=== PATIENT | female | born 1965 ===

== ENCOUNTER 2016-10-30 15:46 | Emergency (ER) | payer OTHER ==
[2016-10-30 15:54] VITALS: BP 145/80; PULSE 73; RESP 16; TEMP 99.4; O2SAT 99
--- NOTE | 2016-10-30 16:30 | ED PDOC ---
HPI: Headache Time Seen by Provider: 10/30/16 16:28 Chief Complaint (Nursing): Headache History Per: Patient History/Exam Limitations: no limitations Onset/Duration Of Symptoms: Hrs Current Symptoms Are (Timing): Still Present Severity: Moderate Quality: Pressure, Squeezing Associated Symptoms: Nausea. denies: Photophobia, Blurred Vision, Vomiting, Extremity Weakness Additional Complaint(s): CC: headache HPI: 51 y/o woman w/ pmh of HTN (on chlorthalidone) presents to the ED with headache. The patient reports headache started 1 day ago, frontal-occipital region, x3 episodes, squeezing/pressure like in nature, radiates to the neck bilaterally, lasts 30 minutes-1 hour. The patient reports associated nausea, right eye pain and tearing but denies chest pain, paresthesia, vomiting, fever, or travel. The patient does not recall a precipitating event. The patient took no medication for the headache. 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 ROS: 12 points assessed and negative unless otherwise reported in HPI PMH: HTN PMD: [facility] meds: chlorthalidone 25 mg PO daily allergies: NKDA PSH: none SOC: denies smoking, alcohol, and drugs - Risk Factors SAH Risk Factors: Nest Degree Relative(s) W/SAH, Polycystic Kidney Disease, Marfan's Syndrome, Aman-Danlos Syndrome, Neurofibromatos, Type I, Sudden Onset Of Pain , Worst Headache Of Life Past Medical History Reviewed: Historical Data, Nursing Documentation, Vital Signs Vital Signs: Last Vital Signs Temp 99.4 F 10/30/16 15:49 Pulse 73 10/30/16 15:49 Resp 16 10/30/16 15:49 BP 145/80 10/30/16 15:49 Pulse Ox 99 10/30/16 15:49 - Medical History PMH: HTN, Hyperlipidemia Denies: Chronic Kidney Disease - Family History Family History: States: Unknown Family Hx - Home Medications Home Medications: Ambulatory Orders Medication Instructions Recorded Carvedilol [Coreg] 6.25 mg PO DAILY 12/05/15 Naproxen [Naprosyn] 500 mg PO BID PRN #15 tablet 12/05/15 Naproxen [Naprosyn] 500 mg PO Q12 PRN #10 tablet 10/30/16 - Allergies Allergies/Adverse Reactions: Allergies Allergy/AdvReac Type Severity Reaction Status Date / Time No Known Allergies Allergy Verified 12/05/15 09:41 Review of Systems ROS Statement: Except As Marked, All Systems Reviewed And Found Negative Constitutional: Negative for: Fever, Weakness Eyes: Positive for: Other (tearing on right eye) ENT: Negative for: Nose Discharge, Nose Congestion Cardiovascular: Negative for: Chest Pain, Palpitations Respiratory: Negative for: Cough, Shortness of Breath, SOB with Exertion, Pleuritic Pain, Wheezing Gastrointestinal: Positive for: Nausea. Negative for: Vomiting, Abdominal Pain , Diarrhea Genitourinary Female: Negative for: Dysuria Neurological: Positive for: Headache. Negative for: Weakness, Numbness, Change in Speech, Confusion, Altered Mental Status Physical Exam - Reviewed Nursing Documentation Reviewed: Yes Vital Signs Reviewed: Yes - Physical Exam Appears: Positive for: No Acute Distress Head Exam: Positive for: ATRAUMATIC, NORMAL INSPECTION, NORMOCEPHALIC Skin: Positive for: Normal Color, Warm, Dry Eye Exam: Positive for: Normal appearance, EOMI, PERRL ENT: Positive for: Normal ENT Inspection. Negative for: Sinus Pain/Drainage Neck: Positive for: Normal, Painless ROM, Supple Cardiovascular/Chest: Positive for: Regular Rate, Rhythm, Chest Non Tender. Negative for: Bradycardia, Tachycardia Respiratory: Positive for: Normal Breath Sounds. Negative for: Decreased Breath Sounds, Accessory Muscle Use, Crackles, Rales, Rhonchi, Wheezing, Respiratory Distress Pulses-Carotid (L): 2+ Pulses-Carotid (R): 2+ Pulses-Dorsalis Pedis (L): 2+ Pulses-Dorsalis Pedis (R): 2+ Pulses-Post. Tibialis (L): 2+ Pulses-Post. Tibialis (R): 2+ Pulses-Radial (L): 2+ Pulses-Radial (R): 2+ Gastrointestinal/Abdominal: Positive for: Normal Exam, Bowel Sounds, Soft. 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 HISTORY: headache COMPARISON: None available. TECHNIQUE: Axial computed tomography images were obtained through the head/brain without intravenous contrast. Radiation dose: Total exam DLP = 827.31 mGy-cm. This CT exam was performed using one or more of the following dose reduction techniques: Automated exposure control, adjustment of the mA and/or kV according to patient size, and/or use of iterative reconstruction technique. FINDINGS: HEMORRHAGE: No intracranial hemorrhage. BRAIN: No mass effect or edema. Scattered periventricular and subcortical white matter hypodensities, which are nonspecific, but often seen with chronic microvascular ischemic disease. Please note that MRI with diffusion imaging is more sensitive in the detection of acute ischemic event. VENTRICLES: No hydrocephalus. CALVARIUM: Unremarkable. PARANASAL SINUSES: Unremarkable as visualized. No significant inflammatory changes. MASTOID AIR CELLS: Unremarkable as visualized. No inflammatory changes. OTHER FINDINGS: None. IMPRESSION: No acute intracranial pathology identified. Re-evaluation Time: 17:56 Condition: Improved Medical Decision Making Medical Decision Makin51 y/o woman w/ pmh of HTN (on chlorthalidone) presents to the ED with headache CBC w/ diff: 7.9>13.4/41.2<307 CMP: 137/3.6, 96/27, 14/0.9, glucose 112, AST 66, ALT 141, alk phos 117 CT head w/o contrast: no intracranial hemorrhage, no mass, no edema, no hydrocephalus Reglan 10 mg IVP re-evaluated 17:56 - given toradol 30 mg IV - patient reports feeling better - patient informed of elevated liver enzymes - patient counseled to follow up w/ PMD in 2-3 days - patient counseled to stay well hydrated Dispo: DC home, given script for naproxen Disposition - Clinical Impression Clinical Impression: Tension type headache - Patient ED Disposition Is Patient to be Admitted: No Discussed With : Ruma Daigle Doctor Will See Patient In The: Office Counseled Patient/Family Regarding: Studies Performed, Diagnosis, Need For Followup, Rx Given - Disposition Referrals: Carlos Walker [facility] [employer] [facility] [Outside] Disposition: Routine/Home Disposition Time: 18:00 Condition: IMPROVED Additional Instructions: Take medications as prescribed. Follow up w/ PMD in 2-3 days to discuss abnormal labs (elevated liver enzymes). Stay well hydrated Prescriptions: Naproxen [Naprosyn] 500 mg PO Q12 PRN #10 tablet PRN Reason: Headache Instructions: Tension Headache (ED) Forms: [facility] ([place]izen [place]) Print Language: COLOMBIAN - GOPAL Present On Arrival: None
[2016-10-30 16:49] LABS: BASO # 0.1 K/uL (0.0-0.2); BASO % 0.7 % (0.0-2.0); EOS # 0.1 K/uL (0.0-0.7); EOS % 0.8 % (0.0-4.0); HEMATOCRIT 41.2 % (34.0-47.0); LYMPH # 2.9 K/uL (1.0-4.3); MEAN CELL VOLUME 79.1 fl (81.0-99.0); MEAN CORPUSCULAR HEMOGLOBIN 25.7 pg (27.0-31.0); MEAN CORPUSCULAR HGB CONC 32.4 g/dL (33.0-37.0); MEAN PLATELET VOLUME 9.1 fl (7.2-11.7); MONO # 0.6 K/uL (0.0-0.8); MONO % 8.1 % (0.0-10.0); NEUT # 4.2 K/uL (1.8-7.0); NEUT % 53.4 % (50.0-75.0); NRBC % 0.1 % (0.0-0.0); RED CELL DISTRIBUTION WIDTH 14.6 % (11.5-14.5); WHITE BLOOD COUNT 7.9 K/uL (4.8-10.8)
[2016-10-30 17:01] LABS: ALB/GLOB RATIO 1.2 (1.0-2.1); ALKALINE PHOSPHATASE 117 U/L (38-126); ALT/SGPT 141 U/L (9-52); AST/SGOT 66 U/L (14-36); BILIRUBIN,TOTAL 0.6 mg/dl (0.2-1.3); BLOOD UREA NITROGEN 14 mg/dl (7-17); CALCIUM 10.3 mg/dL (8.4-10.2); CARBON DIOXIDE 27 mmol/L (22-30); CHLORIDE 96 mmol/L (98-107); GFR AFRICAN-AMERICAN > 60; GLUCOSE,RANDOM 112 mg/dL (65-105); POTASSIUM 3.6 MMOL/L (3.6-5.0); SODIUM 137 mmol/l (132-148); TOTAL PROTEIN 9.8 G/DL (6.3-8.2)
--- NOTE | 2016-10-30 17:20 | CT ---
PROCEDURE: CT HEAD WITHOUT CONTRAST. HISTORY: headache COMPARISON: None available. TECHNIQUE: Axial computed tomography images were obtained through the head/brain without intravenous contrast. Radiation dose: Total exam DLP = 827.31 mGy-cm. This CT exam was performed using one or more of the following dose reduction techniques: Automated exposure control, adjustment of the mA and/or kV according to patient size, and/or use of iterative reconstruction technique. FINDINGS: HEMORRHAGE: No intracranial hemorrhage. BRAIN: No mass effect or edema. Scattered periventricular and subcortical white matter hypodensities, which are nonspecific, but often seen with chronic microvascular ischemic disease. Please note that MRI with diffusion imaging is more sensitive in the detection of acute ischemic event. VENTRICLES: No hydrocephalus. CALVARIUM: Unremarkable. PARANASAL SINUSES: Unremarkable as visualized. No significant inflammatory changes. MASTOID AIR CELLS: Unremarkable as visualized. No inflammatory changes. OTHER FINDINGS: None. IMPRESSION: No acute intracranial pathology identified.
--- NOTE | 2016-10-30 18:29 | ED PDOC ---
HPI: Headache Time Seen by Provider: 10/30/16 16:28 Chief Complaint (Nursing): Headache Past Medical History Vital Signs: Last Vital Signs Temp 99.4 F 10/30/16 15:49 Pulse 73 10/30/16 15:49 Resp 16 10/30/16 15:49 BP 145/80 10/30/16 15:49 Pulse Ox 99 10/30/16 18:15 - Medical History PMH: HTN, Hyperlipidemia Denies: Chronic Kidney Disease - Family History Family History: States: Unknown Family Hx - Home Medications Home Medications: Ambulatory Orders Medication Instructions Recorded Carvedilol [Coreg] 6.25 mg PO DAILY 12/05/15 Naproxen [Naprosyn] 500 mg PO BID PRN #15 tablet 12/05/15 Naproxen [Naprosyn] 500 mg PO Q12 PRN #10 tablet 10/30/16 - Allergies Allergies/Adverse Reactions: Allergies Allergy/AdvReac Type Severity Reaction Status Date / Time No Known Allergies Allergy Verified 12/05/15 09:41 - Laboratory Results Result Diagrams: 10/30/16 16:30 10/30/16 16:30 - ECG O2 Sat by Pulse Oximetry: 99 Medical Decision Making Medical Decision Making: Time: 1750 --Saw patient with resident, Disposition - Clinical Impression Clinical Impression: Tension type headache - Disposition Referrals: [facility] [Outside] Disposition: Routine/Home Disposition Time: 18:00 Condition: IMPROVED Additional Instructions: Take medications as prescribed. Follow up w/ PMD in 2-3 days to discuss abnormal labs (elevated liver enzymes). Stay well hydrated Prescriptions: Naproxen [Naprosyn] 500 mg PO Q12 PRN #10 tablet PRN Reason: Headache Instructions: Tension Headache (ED) Forms: [employer] (Sinhala) Print Language: MICRONESIAN - POA Present On Arrival: None
--- NOTE | 2016-10-30 18:35 | ED PDOC ---
HPI: Headache Time Seen by Provider: 10/30/16 16:28 Chief Complaint (Nursing): Headache Chief Complaint (Provider): Headache History Per: Patient History/Exam Limitations: no limitations Onset/Duration Of Symptoms: Days (x2) Current Symptoms Are (Timing): Still Present Additional Complaint(s): Diamante Gonzalez is a 51 year old female who presents to the emergency department with a complaint of non-thunderclap headache ongoing for 2 days. Denied any further medical complaints. PMD: none provided Past Medical History Reviewed: Historical Data, Nursing Documentation, Vital Signs Vital Signs: Last Vital Signs Temp 99.4 F 10/30/16 15:49 Pulse 73 10/30/16 15:49 Resp 16 10/30/16 15:49 BP 145/80 10/30/16 15:49 Pulse Ox 99 10/30/16 18:15 - Medical History PMH: HTN, Hyperlipidemia Denies: Chronic Kidney Disease - Family History Family History: States: Unknown Family Hx - Social History Current smoker - smoking cessation education provided: No Ex-Smoker (has not smoked in the last 12 months): No Alcohol: None Drugs: Denies - Home Medications Home Medications: Ambulatory Orders Medication Instructions Recorded Carvedilol [Coreg] 6.25 mg PO DAILY 12/05/15 Naproxen [Naprosyn] 500 mg PO BID PRN #15 tablet 12/05/15 Naproxen [Naprosyn] 500 mg PO Q12 PRN #10 tablet 10/30/16 - Allergies Allergies/Adverse Reactions: Allergies Allergy/AdvReac Type Severity Reaction Status Date / Time No Known Allergies Allergy Verified 12/05/15 09:41 Review of Systems ROS Statement: Except As Marked, All Systems Reviewed And Found Negative Neurological: Positive for: Headache (non-thunderclap) Physical Exam - Reviewed Nursing Documentation Reviewed: Yes Vital Signs Reviewed: Yes - Physical Exam Appears: Positive for: Well, Non-toxic, No Acute Distress Head Exam: Positive for: ATRAUMATIC, NORMAL INSPECTION, NORMOCEPHALIC Eye Exam: Positive for: Normal appearance, EOMI, PERRL. Negative for: Nystagmus ENT: Positive for: Normal ENT Inspection Neck: Positive for: Normal, Painless ROM Cardiovascular/Chest: Positive for: Regular Rate, Rhythm. Negative for: Chest Non Tender Respiratory: Positive for: Normal Breath Sounds. Negative for: Decreased Breath Sounds, Respiratory Distress Extremity: Positive for: Normal ROM. 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 Negative for: Motor/Sensory Deficits - Laboratory Results Result Diagrams: 10/30/16 16:30 10/30/16 16:30 - ECG O2 Sat by Pulse Oximetry: 99 (RA) Pulse Ox Interpretation: Normal Medical Decision Making Medical Decision Making: Initial Impression: Headache Initial Plan: * Toradol 30mg IV * CBC * CMP * CT head without contrast * Reglan 10mg IVP Time: 1630 --Labs: elevated ALT/AST. Pateint made aware of results. Time: 1718 --CT head FINDINGS: HEMORRHAGE: No intracranial hemorrhage. BRAIN: No mass effect or edema. Scattered periventricular and subcortical white matter hypodensities, which are nonspecific, but often seen with chronic microvascular ischemic disease. Please note that MRI with diffusion imaging is more sensitive in the detection of acute ischemic event. VENTRICLES: No hydrocephalus. CALVARIUM: Unremarkable. PARANASAL SINUSES: Unremarkable as visualized. No significant inflammatory changes. MASTOID AIR CELLS: Unremarkable as visualized. No inflammatory changes. OTHER FINDINGS: None. IMPRESSION: No acute intracranial pathology identified. Time: 1800 --Upon provider reevaluation, patient is feeling better after given Toradol/ Reglan and requires no further treatment in the ED at this time. Patient will be discharged home with Rx for Naprosyn 500mg. Counseling was provided and all questions were answered regarding diagnosis and need for follow up with PCP in 2 days. There is agreement to discharge plan. Return if symptoms persist or worsen. Clinical Impression: Tension-type headache Scribe Attestation: Documented by Laurita Castillo, acting as a scribe for Ruma Daigle MD. Provider Scribe Attestation: All medical record entries made by the Scribe were at my direction and personally dictated by me. I have reviewed the chart and agree that the record accurately reflects my personal performance of the history, physical exam, medical decision making, and the department course for this patient. I have also personally directed, reviewed, and agree with the discharge instructions and disposition. Disposition - Clinical Impression Clinical Impression: Tension type headache - Patient ED Disposition Is Patient to be Admitted: No Counseled Patient/Family Regarding: Studies Performed, Diagnosis, Need For Followup, Rx Given - Disposition Referrals: Carlos Walker [facility] [Outside] Disposition: Routine/Home Disposition Time: 18:00 Condition: IMPROVED Additional Instructions: Take medications as prescribed. Follow up w/ PMD in 2-3 days to discuss abnormal labs (elevated liver enzymes). Stay well hydrated Prescriptions: Naproxen [Naprosyn] 500 mg PO Q12 PRN #10 tablet PRN Reason: Headache Instructions: Tension Headache (ED) Forms: [facility] ([place]) Print Language: MALTESE - POA Present On Arrival: None
== END 2016-10-30 18:21 | disposition home or self-care (01) ==
LOC: H.ER 15:46
DX: G44.209 Tension-type headache, unspecified, not intractable (principal); E78.5 Hyperlipidemia, unspecified; I10 Essential (primary) hypertension
CPT/HCPCS: 70450; 80053; 85025; 96374; 99282; J1885; J2765